=== PATIENT | female | born 1970 | race Caucasian/White ===

== ENCOUNTER → 2017-02-19 | Outpatient (CLI) | payer OTHER | LOC: FIMAGING 12:17 | PROVIDERS: ATTEND Family Medicine | DX: Z12.31 Encounter for screening mammogram for malignant neoplasm of breast (principal) | CPT/HCPCS: G0202 ==

== ENCOUNTER → 2017-02-27 | Outpatient (CLI) | payer OTHER | LOC: FIMAGING 12:42 | PROVIDERS: ATTEND Family Medicine | DX: R92.8 Other abnormal and inconclusive findings on diagnostic imaging of breast (principal) ==

== ENCOUNTER → 2017-03-17 | Outpatient (CLI) | payer OTHER ==
[~2017-03-17] MED LIST: GADOBUTROL 10 ML VIAL IVP ONE
== END ==
LOC: FIMAGING 18:35
DX: G43.909 Migraine, unspecified, not intractable, without status migrainosus (principal)
CPT/HCPCS: A9585

== ENCOUNTER → 2017-11-27 | Outpatient (CLI) | payer OTHER | LOC: FIMAGING 10:22 | PROVIDERS: ATTEND Family Medicine | DX: K76.9 Liver disease, unspecified (principal) ==

== ENCOUNTER → 2017-12-15 | Outpatient (CLI) | payer OTHER | LOC: FIMAGING 15:22 | PROVIDERS: ATTEND Family Medicine | DX: M76.9 Unspecified enthesopathy, lower limb, excluding foot (principal) | CPT/HCPCS: A9585 ==

== ENCOUNTER 2018-01-15 13:04 | Emergency (ER) | payer OTHER ==
--- NOTE | 2018-01-15 14:13 | EDPHY ---
H & P Stated Complaint: L side CP exac c breathing x 1mo, palpitations x 2mo. Time Seen by Provider: 01/15/18 14:12 HPI/ROS: CHIEF COMPLAINT: Left-sided chest pain HISTORY OF PRESENT ILLNESS: The patient presents the ED with a 1 month history of increasing left-sided chest pain. Over the past several days it has become more constant and pleuritic. She denies any asymmetric calf pain or swelling. She denies fever, cough or congestion. Additionally the patient has been struggling with some symptoms of palpitations over the past several months. She is scheduled to see her primary care provider tomorrow for consideration of a referral for Holter monitoring. The patient currently takes Adderall as needed for attention deficit hyperactivity disorder. She takes no additional medications. She did stop taking minocycline several weeks ago. REVIEW OF SYSTEMS: A comprehensive 10 point review of systems is otherwise negative aside from elements mentioned in the history of present illness. Source: Patient Exam Limitations: No limitations - Personal History Current Tetanus/Diphtheria Vaccine: Yes - Medical/Surgical History Hx Asthma: No Hx Chronic Respiratory Disease: No Hx Diabetes: No Hx Cardiac Disease: No Hx Renal Disease: No Hx Cirrhosis: No Hx Alcoholism: No Hx HIV/AIDS: No Hx Splenectomy or Spleen Trauma: No Other PMH: tubes tied, wisdom teeth - Social History Smoking Status: Never smoked - Physical Exam Exam: General Appearance: Alert, no distress Eyes: Pupils equal and round no pallor or injection ENT, Mouth: Mucous membranes moist Respiratory: There are no retractions, lungs are clear to auscultation Cardiovascular: Regular rate and rhythm Gastrointestinal: Abdomen is soft and nontender, no masses, bowel sounds normal Neurological: A&O, normal motor function, normal sensory exam, normal cranial nerves Skin: Warm and dry, no rashes Musculoskeletal: Neck is supple nontender Extremities: symmetrical, full range of motion Constitutional: Initial Vital Signs Temperature (C) 36.8 C 01/15/18 13:09 Heart Rate 83 01/15/18 13:09 Respiratory Rate 16 01/15/18 13:09 Blood Pressure 129/86 H 01/15/18 13:09 O2 Sat (%) 99 01/15/18 13:09 O2 Delivery Mode Room Air Allergies/Adverse Reactions: No Known Allergies Allergy (Verified 01/15/18 13:08) Home Medications: Medication Instructions Recorded NK [No Known Home Meds] 05/30/15 Medical Decision Making - Diagnostics EKG Interpretation: EKG: Complete interpretation has been separately recorded in the [email or web address] archive. Summary impression: Sinus rhythm, rate 71 ED Course/Re-evaluation: The patient presents the ED for evaluation of pleuritic chest pain which has been increasing over the past week. The patient's risk factors include recent immobility following a prolonged train ride. The patient was noted to be hemodynamically stable. Based upon her PERC score D-dimer testing was initiated. The patient's D-dimer was elevated. CT pulmonary angiogram was obtained which demonstrates no evidence of thromboembolic disease. The patient also complains of occasional arrhythmia. She is noted to have occasional PACs on the monitor today. The patient is scheduled to follow up with her primary care provider next week for further evaluation discussion of her symptoms. At this point time there is no evidence of a significant arrhythmia, pneumonia, pneumothorax, myocardial infarction or pulmonary embolism. The patient will be discharged home with customary aftercare instructions and return precautions. Differential Diagnosis: Differential diagnosis considered includes asthma, bronchitis, pneumonia, pulmonary embolism, arrhythmia - Data Points Laboratory Results: Laboratory Results 01/15/18 14:25 01/15/18 14:25 01/15/18 01/15/18 01/15/18 15:00 14:44 14:29 WBC RBC Hgb Hct MCV MCH MCHC RDW Plt Count MPV Neut % (Auto) Lymph % (Auto) Coleman % (Auto) Eos % (Auto) Baso % (Auto) Nucleat RBC Rel Count Absolute Neuts (auto) Absolute Lymphs (auto) Absolute Monos (auto) Absolute Eos (auto) Absolute Basos (auto) Absolute Nucleated RBC Immature Gran % Immature Gran # D-Dimer 0.55 ug/mLFEU H ug/mLFEU (0.00-0.50) Sodium Potassium Chloride Carbon Dioxide Anion Gap BUN Creatinine Estimated GFR Glucose Calcium Magnesium 2.2 mg/dL mg/dL (1.6-2.3) POC Troponin I 0.00 ng/mL ng/mL (0.00-0.08) Specimen Hemolysis 112 01/15/18 01/15/18 01/15/18 14:25 14:25 14:25 WBC 7.98 10^3/uL 10^3/uL (3.80-9.50) RBC 4.72 10^6/uL 10^6/uL (4.18-5.33) Hgb 13.9 g/dL g/dL (12.6-16.3) Hct 42.7 % % (38.0-47.0) MCV 90.5 fL fL (81.5-99.8) MCH 29.4 pg pg (27.9-34.1) MCHC 32.6 g/dL g/dL (32.4-36.7) RDW 13.4 % % (11.5-15.2) Plt Count 257 10^3/uL 10^3/uL (150-400) MPV 9.4 fL fL (8.7-11.7) Neut % (Auto) 66.0 % % (39.3-74.2) Lymph % (Auto) 24.2 % % (15.0-45.0) Coleman % (Auto) 7.5 % % (4.5-13.0) Eos % (Auto) 1.3 % % (0.6-7.6) Baso % (Auto) 0.9 % % (0.3-1.7) Nucleat RBC Rel Count 0.3 % H % (0.0-0.2) Absolute Neuts (auto) 5.27 10^3/uL 10^3/uL (1.70-6.50) Absolute Lymphs (auto) 1.93 10^3/uL 10^3/uL (1.00-3.00) Absolute Monos (auto) 0.60 10^3/uL 10^3/uL (0.30-0.80) Absolute Eos (auto) 0.10 10^3/uL 10^3/uL (0.03-0.40) Absolute Basos (auto) 0.07 10^3/uL 10^3/uL (0.02-0.10) Absolute Nucleated RBC 0.02 10^3/uL H 10^3/uL (0-0.01) Immature Gran % 0.1 % % (0.0-1.1) Immature Gran # 0.01 10^3/uL 10^3/uL (0.00-0.10) D-Dimer REJ Sodium 142 mEq/L mEq/L (135-145) Potassium 4.6 mEq/L mEq/L (3.3-5.0) Chloride 110 mEq/L mEq/L (97-110) Carbon Dioxide 21 mEq/l L mEq/l (22-31) Anion Gap 11 mEq/L mEq/L (6-14) BUN 17 mg/dL mg/dL (7-23) Creatinine 0.6 mg/dL mg/dL (0.6-1.0) Estimated GFR > 60 Glucose 72 mg/dL mg/dL (70-100) Calcium 9.2 mg/dL mg/dL (8.5-10.4) Magnesium POC Troponin I Specimen Hemolysis 100 Point of Care Test Results: Chemistry 01/15/18 14:29 POC Troponin I 0.00 ng/mL ng/mL (0.00-0.08) Departure - Departure Disposition: Home, Routine, Self-Care Clinical Impression: Pleurisy, Palpitations Condition: Good Instructions: Pleurisy (ED), Heart Palpitations (ED) Additional Instructions: 1. Your CT scan demonstrates no evidence of a blood clot. 2. Your EKG does demonstrate occasional premature atrial contractions. 3. The remainder of your laboratory testing is unremarkable. 4. Please follow-up with your primary care provider as scheduled next week 5. Please return to the ED for markedly worsening symptoms or other concerns. Referrals: Chanda Apple MD [Primary Care Provider] - As per Instructions
--- NOTE | 2018-01-15 14:19 | CPEKG ---
Test Reason : OPEN Blood Pressure : / mmHG Vent. Rate : 071 BPM Atrial Rate : 069 BPM P-R Int : 133 ms QRS Dur : 086 ms QT Int : 412 ms P-R-T Axes : 055 074 031 degrees QTc Int : 448 ms Sinus rhythm Confirmed by Rufus Cardenas ([id number]) on 01/15/2018 2:19:04 PM Referred By: Confirmed By:Rufus Cardenas
[2018-01-15 14:34] LABS: PLATELET COUNT 257 10^3/uL (150-400)
[2018-01-15] MEDS ORDERED: IOPAMIDOL (ISOVUE 370) 100 ML BTL IV ONE (15:55)
[2018-01-15 17:01] VITALS: BP 132/62
== END 2018-01-15 17:08 | disposition home or self-care (01) ==
DX: R09.1 Pleurisy (principal); R00.2 Palpitations
CPT/HCPCS: 84484-PO; Q9967

== ENCOUNTER → 2018-03-03 | Outpatient (CLI) | payer OTHER | LOC: FIMAGING 11:40 | PROVIDERS: ATTEND Family Medicine | DX: Z12.31 Encounter for screening mammogram for malignant neoplasm of breast (principal) ==

== ENCOUNTER → 2018-07-13 | Outpatient (CLI) | payer OTHER | LOC: FIMAGING 15:11 | PROVIDERS: ATTEND Family Medicine | DX: M54.5 Low back pain (principal) ==